=== PATIENT | female | born 1970 | race Caucasian/White ===

== ENCOUNTER 2017-09-02 17:08 | Inpatient (IN) ==
[2017-09-02] MEDS ORDERED: SODIUM CHLORIDE 0.9% 1,000 ML IV STA (17:52)
[2017-09-02] MEDS ORDERED: ALUM/MAG/SIMETH/LIDO VISC 1:1 30 ML BOTTLE PO STA (18:09)
[2017-09-02] MEDS ORDERED: PANTOPRAZOLE 40 MG VIAL IV STA (18:09)
[2017-09-02] MEDS ORDERED: ONDANSETRON 4 MG/2 ML VIAL IV STA (18:09)
[2017-09-02] MEDS ORDERED: KETOROLAC 30 MG/1 ML VIAL IV STA (18:09)
[2017-09-02 19:09] LABS: Basophils # 0.1 10*3/uL (0.0-0.2); Basophils % 0.7 % (0.0-0.8); Hematocrit 40.2 VOL% (35.7-47.0); Hemoglobin 14.3 GM/DL (12.0-16.0); Immature Granulocytes % 1.7 %; Immature Granulocytes Absolute 0.18 #; Lymphocytes # 0.5 10*3/uL (1.4-4.0); Lymphocytes % 4.8 % (21.3-54.2); Mean Corpuscular HGB Conc 35.6 GM/DL (32-36); Mean Corpuscular Hemoglobin 32 PG (27-34); Mean Corpuscular Volume 89.9 FL (87-102); Mean Platelet Volume 11.3 FL (9.6-12.0); Monocytes # 0.8 10*3/uL (0.11-0.8); Monocytes % 7.8 % (1.7-12.7); Neutrophils # 8.8 10*3/uL (1.4-7.4); Platelet Count 223 T/CUMM (130-400); Red Blood Count 4.47 MC/CUMM (3.8-5.5); Red Cell Distribution Width 13.7 % (9.3-17.3); White Blood Count 10.4 T/CUMM (4-12)
[2017-09-02] MEDS ORDERED: cefTRIAXone 1,000 MG in SODIUM CHLORIDE 0.9% 100 ML IV STA (19:18)
[2017-09-02] MEDS ORDERED: KETOROLAC 30 MG/1 ML VIAL ONE (19:25)
[2017-09-02] MEDS ORDERED: ALUM/MAG/SIMETH/LIDO VISC 1:1 30 ML BOTTLE PO ONE (19:25)
[2017-09-02] MEDS ORDERED: ONDANSETRON 4 MG/2 ML VIAL ONE (19:25)
[2017-09-02] MEDS ORDERED: PANTOPRAZOLE 40 MG VIAL IV ONE (19:25)
[2017-09-02] MEDS ORDERED: cefTRIAXone 1,000 MG VIAL ONE (19:25)
[2017-09-02 19:33] LABS: Albumin 2.7 G/DL (3.4-5.0); Bilirubin,Total 0.7 MG/DL (0.2-1.0); Calcium 8.3 MG/DL (8.5-10.1); Osmolality,Calculated 251.6 MOS/KG (273-304); Potassium 3.7 MMOL/L (3.5-5.1); Total Protein 6.2 G/DL (6.4-8.3)
[2017-09-02 19:35] LABS: Amylase 59 U/L (25-115); Magnesium 1.3 MG/DL (1.8-2.4); Troponin I Only < 0.015 NG/ML (0.00-0.045)
[2017-09-02 19:43] LABS: Band Neutrophils 55 % (0-10); Lymphocytes 4 % (20-55); Platelet Estimate Adequate; Segmented Neutrophils 32 % (50-85); Total Cells Counted 100
[2017-09-02] MEDS ORDERED: DEXTROSE 50% 25 GM/50 ML VIAL IV STA (19:51)
[2017-09-02] MEDS ORDERED: MAGNESIUM SULF RIDER 2 GM in PREMIX 1 EACH IV STA (19:51)
[2017-09-02] MEDS ORDERED: SODIUM CHLORIDE 0.9% 2,050 ML IV ONE (19:53)
[2017-09-02] MEDS ORDERED: PIPERACILLIN/TAZOBACTAM 3,375 MG in SODIUM CHLORIDE 0.9% 100 ML IV SCH (20:00)
[2017-09-02] MEDS ORDERED: ACETAMINOPHEN 325 MG TABLET PO PRN (20:26)
[2017-09-02] MEDS ORDERED: ALBUTEROL 2.5 MG/3 ML NEB RESP TX PRN (20:26)
[2017-09-02 20:37] LABS: INR 1.2; PT Patient Result 12.5 SECS; Partial Thromboplastin Time 33.4 SECS (0-40)
[2017-09-02 20:51] LABS: Lactic Acid 5.8 MMOL/L (0.4-2.0)
[2017-09-02 21:40] LABS: HIV Antigen/Antibody Result Nonreactive (Nonreactive)
[2017-09-02] MEDS: LACTATED RINGERS 1,000 ML IV SCH (22:30)
[2017-09-03] MEDS ORDERED: KETOROLAC 15 MG/1 ML VIAL IV PRN (00:13)
[2017-09-03] MEDS: LEVOFLOXACIN INJ 750 MG in PREMIX 1 EACH IV SCH (00:14)
[2017-09-03] MEDS: CLORAZEPATE 3.75 MG TABLET PO PRN (00:19)
[2017-09-03] MEDS: LEVALBUTEROL 1.25 MG/3 ML NEB RESP TX SCH ×2 (01:43→07:14)
[2017-09-03] MEDS: LORazepam 2 MG/1 ML VIAL IV PRN ×5 (02:20→21:10)
[2017-09-03 04:14] LABS: Basophils # 0.1 10*3/uL (0.0-0.2); Basophils % 1.1 % (0.0-0.8); Hematocrit 33.9 VOL% (35.7-47.0); Hemoglobin 11.8 GM/DL (12.0-16.0); Immature Granulocytes % 1.6 %; Immature Granulocytes Absolute 0.13 #; Lymphocytes # 0.2 10*3/uL (1.4-4.0); Lymphocytes % 2.4 % (21.3-54.2); Mean Corpuscular HGB Conc 34.8 GM/DL (32-36); Mean Corpuscular Hemoglobin 31 PG (27-34); Mean Corpuscular Volume 90.2 FL (87-102); Mean Platelet Volume 11.4 FL (9.6-12.0); Monocytes # 0.5 10*3/uL (0.11-0.8); Monocytes % 5.4 % (1.7-12.7); Neutrophils # 7.5 10*3/uL (1.4-7.4); Neutrophils % 89.5 % (38.7-73.9); Platelet Count 174 T/CUMM (130-400); Red Blood Count 3.76 MC/CUMM (3.8-5.5); White Blood Count 8.3 T/CUMM (4-12)
[2017-09-03 04:44] LABS: Albumin 2.1 G/DL (3.4-5.0); Bilirubin,Total 0.5 MG/DL (0.2-1.0); Calcium 7.1 MG/DL (8.5-10.1); Osmolality,Calculated 260.2 MOS/KG (273-304); Potassium 3.8 MMOL/L (3.5-5.1)
[2017-09-03] MEDS: PIPERACILLIN/TAZOBACTAM 3,375 MG in SODIUM CHLORIDE 0.9% 100 ML IV SCH ×3 (05:10→21:13)
[2017-09-03 05:58] LABS: Band Neutrophils 60 % (0-10); Hypochromasia 1+; Lymphocytes 3 % (20-55); Metamyelocytes 6 %; Myelocytes 4 %; Platelet Estimate Normal; Promyelocytes 1 %; Segmented Neutrophils 19 % (50-85); Total Cells Counted 100
[2017-09-03 07:43] LABS: ABG Base Excess -9.2 MMOL/L (-2.5-2.5); ABG Oxygen Saturation 89.1 % (95-100); ABG PCO2 25.5 MM HG (35-48); ABG PH 7.369 (7.35-7.45); ABG PO2 60.4 MM HG (80-95); ABG TCO2 13.1 MMOL/L (23-27)
[2017-09-03] MEDS ORDERED: DEXTROSE 50% 25 GM/50 ML VIAL IV ONE (08:06)
[2017-09-03] MEDS ORDERED: PHENYLEPHRINE DRIP 40 MG/250 ML PREMIX IV ONE (08:47)
[2017-09-03] MEDS: BUDESONIDE/FORMOTEROL 160-4.5 INHALER 6 GM INH SCH (08:53)
[2017-09-03] MEDS ORDERED: SODIUM BICARB INJ 100 MEQ in DEXTROSE 5% NACL 0.45% 900 ML IV SCH (09:00)
[2017-09-03] MEDS: LACTATED RINGERS 1,000 ML IV SCH ×3 (10:17→21:14)
[2017-09-03] MEDS: FOLIC ACID 1 MG TABLET PO SCH (10:18)
[2017-09-03] MEDS: POTASSIUM CHLORIDE 10 MEQ TABLET PO SCH (10:18)
[2017-09-03] MEDS: THIAMINE 100 MG TABLET PO SCH (10:18)
[2017-09-03] MEDS: MULTIVITAMIN (CENTRUM) TABLET PO SCH (10:18)
[2017-09-03] MEDS: LEVOTHYROXINE 50 MCG TABLET PO SCH (10:18)
[2017-09-03] MEDS: ENOXAPARIN 30 MG/0.3 ML SYRINGE SUBCUT SCH (10:34)
[2017-09-03] MEDS: methylPREDNISolone SOD SUC 40 MG/1 ML VIAL IV SCH ×2 (10:35→18:09)
[2017-09-03] MEDS: PANTOPRAZOLE 40 MG VIAL IV SCH (10:35)
[2017-09-03 10:58] LABS: Apearance,Urine CLOUDY (Clear); Bacteria,Urine Occasional /HPF (Few); Bilirubin,Urine Negative (Negative); Blood, Urine Small mg/dL (Negative); Glucose,Urine (UA) Negative (Negative); Ketones,Urine Negative (Negative); Mucus,Urine Few /LPF (Occasional); Nitrite,Urine Negative (Negative); Protein,Urine 30 MG/DL; Squamous Epithelial Cell,Urine Occasional /HPF (0-10); Urine Color Amber (Yellow); Urine Specific Gravity 1.016 (1.001-1.035); Urine Urobilinogen < 2.0 EU/DL (0.2-1.0); WBC,Urine 5 /HPF (0-6)
[2017-09-03] MEDS: ALBUTEROL/IPRATROPIUM 3 ML NEB RESP TX SCH ×2 (12:44→19:23)
[2017-09-03] MEDS ORDERED: PHENOL 1.4% THROAT SPRAY 177 ML BOTTLE PO PRN (13:56)
[2017-09-03] MEDS ORDERED: DEXTROSE 50% 25 GM/50 ML VIAL IV PRN (18:32)
[2017-09-03] MEDS ORDERED: SODIUM CHLORIDE 0.9% 1,000 ML IV STA (20:00)
[2017-09-04] MEDS ORDERED: ALBUTEROL/IPRATROPIUM 3 ML NEB RESP TX ONE (00:01)
[2017-09-04] MEDS: ALBUTEROL/IPRATROPIUM 3 ML NEB RESP TX SCH ×4 (01:08→19:27)
[2017-09-04 04:28] LABS: Hematocrit 33.7 VOL% (35.7-47.0); Hemoglobin 12.2 GM/DL (12.0-16.0); Immature Granulocytes % 2.9 %; Immature Granulocytes Absolute 0.67 #; Lymphocytes # 0.2 10*3/uL (1.4-4.0); Lymphocytes % 0.7 % (21.3-54.2); Mean Corpuscular HGB Conc 36.2 GM/DL (32-36); Mean Corpuscular Hemoglobin 32 PG (27-34); Mean Corpuscular Volume 87.1 FL (87-102); Mean Platelet Volume 12.3 FL (9.6-12.0); Monocytes # 0.6 10*3/uL (0.11-0.8); Monocytes % 2.6 % (1.7-12.7); Neutrophils # 21.6 10*3/uL (1.4-7.4); Neutrophils % 93.8 % (38.7-73.9); Platelet Count 154 T/CUMM (130-400); Red Blood Count 3.87 MC/CUMM (3.8-5.5); Red Cell Distribution Width 13.9 % (9.3-17.3)
[2017-09-04] MEDS: methylPREDNISolone SOD SUC 40 MG/1 ML VIAL IV SCH ×3 (04:39→16:52)
[2017-09-04] MEDS: LACTATED RINGERS 1,000 ML IV SCH ×2 (04:57→12:28)
[2017-09-04] MEDS: LORazepam 2 MG/1 ML VIAL IV PRN ×3 (04:58→16:52)
[2017-09-04] MEDS: HYDROmorphone 2 MG/1 ML VIAL IV PRN (05:02)
[2017-09-04] MEDS: PIPERACILLIN/TAZOBACTAM 3,375 MG in SODIUM CHLORIDE 0.9% 100 ML IV SCH ×3 (05:05→20:55)
[2017-09-04 05:57] LABS: Band Neutrophils 37 % (0-10); Lymphocytes 2 % (20-55); Myelocytes 1 %; Segmented Neutrophils 59 % (50-85)
[2017-09-04 05:59] LABS: Giant Platelets Few; Platelet Estimate Normal; Total Cells Counted 100
[2017-09-04] MEDS: LEVOTHYROXINE 50 MCG TABLET PO SCH (07:03)
[2017-09-04 08:29] LABS: Hemoglobin 12.3 GM/DL (12.0-16.0); Immature Granulocytes % 4.1 %; Immature Granulocytes Absolute 1.06 #; Lymphocytes # 0.3 10*3/uL (1.4-4.0); Lymphocytes % 1.2 % (21.3-54.2); Mean Corpuscular HGB Conc 36.2 GM/DL (32-36); Mean Corpuscular Hemoglobin 31 PG (27-34); Mean Corpuscular Volume 86.7 FL (87-102); Mean Platelet Volume 12.1 FL (9.6-12.0); Monocytes # 0.7 10*3/uL (0.11-0.8); Monocytes % 2.7 % (1.7-12.7); Neutrophils # 23.7 10*3/uL (1.4-7.4); Platelet Count 154 T/CUMM (130-400); Red Blood Count 3.92 MC/CUMM (3.8-5.5); Red Cell Distribution Width 13.9 % (9.3-17.3); White Blood Count 25.8 T/CUMM (4-12)
[2017-09-04 08:52] LABS: Band Neutrophils 7 % (0-10); Burr Cells Slight; Giant Platelets Few; Hypochromasia Slight; Lymphocytes 1 % (20-55); Platelet Estimate Normal; Segmented Neutrophils 89 % (50-85); Total Cells Counted 100
[2017-09-04 09:01] LABS: Albumin 2.1 G/DL (3.4-5.0); Bilirubin,Total 0.5 MG/DL (0.2-1.0); Calcium 7.7 MG/DL (8.5-10.1); Osmolality,Calculated 273.5 MOS/KG (273-304); Potassium 4.5 MMOL/L (3.5-5.1); Total Protein 5.5 G/DL (6.4-8.3)
[2017-09-04] MEDS: POTASSIUM CHLORIDE 10 MEQ TABLET PO SCH (09:17)
[2017-09-04] MEDS: THIAMINE 100 MG TABLET PO SCH (09:17)
[2017-09-04] MEDS: FOLIC ACID 1 MG TABLET PO SCH (09:17)
[2017-09-04] MEDS: MULTIVITAMIN (CENTRUM) TABLET PO SCH (09:17)
[2017-09-04] MEDS: PANTOPRAZOLE 40 MG VIAL IV SCH (09:28)
[2017-09-04] MEDS: ENOXAPARIN 30 MG/0.3 ML SYRINGE SUBCUT SCH (09:28)
[2017-09-04] MEDS ORDERED: LOPERAMIDE 2 MG CAPSULE PO PRN (09:48)
[2017-09-05] MEDS: methylPREDNISolone SOD SUC 40 MG/1 ML VIAL IV SCH ×3 (00:32→16:35)
[2017-09-05] MEDS: HYDROmorphone 2 MG/1 ML VIAL IV PRN ×3 (00:34→21:53)
[2017-09-05] MEDS: LORazepam 2 MG/1 ML VIAL IV PRN (00:35)
[2017-09-05] MEDS: LEVOFLOXACIN INJ 750 MG in PREMIX 1 EACH IV SCH (00:38)
[2017-09-05] MEDS: ALBUTEROL/IPRATROPIUM 3 ML NEB RESP TX SCH ×4 (01:01→19:28)
[2017-09-05] MEDS: PIPERACILLIN/TAZOBACTAM 3,375 MG in SODIUM CHLORIDE 0.9% 100 ML IV SCH ×3 (04:46→21:00)
[2017-09-05] MEDS: LACTATED RINGERS 1,000 ML IV SCH ×4 (04:46→21:52)
[2017-09-05 06:16] LABS: Albumin 1.6 G/DL (3.4-5.0); Bilirubin,Total 0.5 MG/DL (0.2-1.0); Calcium 8.1 MG/DL (8.5-10.1)
[2017-09-05] MEDS: LEVOTHYROXINE 50 MCG TABLET PO SCH (06:16)
[2017-09-05 07:18] LABS: Hematocrit 33.1 VOL% (35.7-47.0); Hemoglobin 11.8 GM/DL (12.0-16.0); Lymphocytes % 1.4 % (21.3-54.2); Mean Corpuscular HGB Conc 35.6 GM/DL (32-36); Mean Corpuscular Hemoglobin 32 PG (27-34); Mean Corpuscular Volume 88.5 FL (87-102); Mean Platelet Volume 12.6 FL (9.6-12.0); Neutrophils % 87.1 % (38.7-73.9); Platelet Count 149 T/CUMM (130-400); Red Blood Count 3.74 MC/CUMM (3.8-5.5); Red Cell Distribution Width 14.3 % (9.3-17.3)
[2017-09-05 07:19] LABS: Basophils % 0.1 % (0.0-0.8); Immature Granulocytes % 8.7 %; Immature Granulocytes Absolute 2.45 #; Lymphocytes # 0.4 10*3/uL (1.4-4.0); Monocytes # 0.8 10*3/uL (0.11-0.8); Monocytes % 2.7 % (1.7-12.7); Neutrophils # 24.4 10*3/uL (1.4-7.4)
[2017-09-05 07:38] LABS: Band Neutrophils 2 % (0-10); Giant Platelets Few; Hypochromasia Slight; Lymphocytes 2 % (20-55); Platelet Estimate Normal; Segmented Neutrophils 93 % (50-85); Total Cells Counted 100
[2017-09-05] MEDS: MULTIVITAMIN (CENTRUM) TABLET PO SCH (08:35)
[2017-09-05] MEDS: THIAMINE 100 MG TABLET PO SCH (08:35)
[2017-09-05] MEDS: POTASSIUM CHLORIDE 10 MEQ TABLET PO SCH (08:36)
[2017-09-05] MEDS: PANTOPRAZOLE 40 MG VIAL IV SCH (08:36)
[2017-09-05] MEDS: ENOXAPARIN 30 MG/0.3 ML SYRINGE SUBCUT SCH (08:36)
[2017-09-05] MEDS: FOLIC ACID 1 MG TABLET PO SCH (08:36)
[2017-09-05] MEDS: CLORAZEPATE 3.75 MG TABLET PO PRN ×2 (14:14→21:53)
[2017-09-05] MEDS: CHOLESTYRAMINE 4 GM PACK PO SCH (21:53)
[2017-09-06] MEDS: methylPREDNISolone SOD SUC 40 MG/1 ML VIAL IV SCH ×3 (00:15→15:40)
[2017-09-06] MEDS: LEVOFLOXACIN INJ 750 MG in PREMIX 1 EACH IV SCH (00:16)
[2017-09-06] MEDS: ALBUTEROL/IPRATROPIUM 3 ML NEB RESP TX SCH ×4 (00:40→19:10)
[2017-09-06] MEDS: PIPERACILLIN/TAZOBACTAM 3,375 MG in SODIUM CHLORIDE 0.9% 100 ML IV SCH ×3 (04:49→20:05)
[2017-09-06] MEDS: LACTATED RINGERS 1,000 ML IV SCH (04:50)
[2017-09-06] MEDS: HYDROmorphone 2 MG/1 ML VIAL IV PRN ×3 (04:51→17:13)
[2017-09-06] MEDS: CLORAZEPATE 3.75 MG TABLET PO PRN (04:55)
[2017-09-06] MEDS: LEVOTHYROXINE 50 MCG TABLET PO SCH (08:00)
[2017-09-06] MEDS: PANTOPRAZOLE 40 MG VIAL IV SCH (09:27)
[2017-09-06] MEDS: FOLIC ACID 1 MG TABLET PO SCH (09:28)
[2017-09-06] MEDS: ENOXAPARIN 40 MG/0.4 ML SYRINGE SUBCUT SCH (09:28)
[2017-09-06] MEDS: THIAMINE 100 MG TABLET PO SCH (09:28)
[2017-09-06] MEDS: CHOLESTYRAMINE 4 GM PACK PO SCH ×2 (09:28→21:36)
[2017-09-06] MEDS: MULTIVITAMIN (CENTRUM) TABLET PO SCH (09:28)
[2017-09-06] MEDS: POTASSIUM CHLORIDE 10 MEQ TABLET PO SCH (09:28)
[2017-09-06] MEDS ORDERED: FUROSEMIDE 40 MG/4 ML VIAL IV ONE (13:54)
[2017-09-07] MEDS: ALBUTEROL/IPRATROPIUM 3 ML NEB RESP TX SCH ×4 (00:03→19:24)
[2017-09-07] MEDS: methylPREDNISolone SOD SUC 40 MG/1 ML VIAL IV SCH ×4 (00:17→23:37)
[2017-09-07] MEDS: LEVOFLOXACIN INJ 750 MG in PREMIX 1 EACH IV SCH ×2 (00:17→23:38)
[2017-09-07] MEDS: LACTATED RINGERS 1,000 ML IV SCH (02:56)
[2017-09-07 03:21] LABS: Basophils # 0.2 10*3/uL (0.0-0.2); Basophils % 0.6 % (0.0-0.8); Hematocrit 32.4 VOL% (35.7-47.0); Hemoglobin 11.2 GM/DL (12.0-16.0); Immature Granulocytes % 7.3 %; Immature Granulocytes Absolute 1.87 #; Lymphocytes # 0.5 10*3/uL (1.4-4.0); Lymphocytes % 1.8 % (21.3-54.2); Mean Corpuscular HGB Conc 34.6 GM/DL (32-36); Mean Corpuscular Hemoglobin 32 PG (27-34); Mean Platelet Volume 12.9 FL (9.6-12.0); Neutrophils # 22.2 10*3/uL (1.4-7.4); Neutrophils % 86.3 % (38.7-73.9); Platelet Count 154 T/CUMM (130-400); Red Blood Count 3.56 MC/CUMM (3.8-5.5); Red Cell Distribution Width 14.9 % (9.3-17.3); White Blood Count 25.7 T/CUMM (4-12)
[2017-09-07 03:59] LABS: Calcium 8.8 MG/DL (8.5-10.1); Magnesium 2.2 MG/DL (1.8-2.4); Osmolality,Calculated 278.1 MOS/KG (273-304); Potassium 4.2 MMOL/L (3.5-5.1)
[2017-09-07] MEDS: PIPERACILLIN/TAZOBACTAM 3,375 MG in SODIUM CHLORIDE 0.9% 100 ML IV SCH ×3 (04:03→19:53)
[2017-09-07] MEDS: HYDROmorphone 2 MG/1 ML VIAL IV PRN ×3 (04:18→21:27)
[2017-09-07 05:52] LABS: Band Neutrophils 1 % (0-10); Lymphocytes 8 % (20-55); Platelet Estimate Adequate; Promyelocytes 1 %; Segmented Neutrophils 87 % (50-85); Total Cells Counted 100
[2017-09-07] MEDS: MULTIVITAMIN (CENTRUM) TABLET PO SCH (08:59)
[2017-09-07] MEDS: LEVOTHYROXINE 50 MCG TABLET PO SCH (08:59)
[2017-09-07] MEDS: POTASSIUM CHLORIDE 10 MEQ TABLET PO SCH (08:59)
[2017-09-07] MEDS: THIAMINE 100 MG TABLET PO SCH (08:59)
[2017-09-07] MEDS: FOLIC ACID 1 MG TABLET PO SCH (08:59)
[2017-09-07] MEDS: CHOLESTYRAMINE 4 GM PACK PO SCH ×2 (08:59→20:02)
[2017-09-07] MEDS: ENOXAPARIN 40 MG/0.4 ML SYRINGE SUBCUT SCH (09:00)
[2017-09-07] MEDS: CLORAZEPATE 3.75 MG TABLET PO PRN (10:42)
[2017-09-07] MEDS: BUDESONIDE/FORMOTEROL 160-4.5 INHALER 6 GM INH SCH ×2 (11:21→20:02)
[2017-09-07 11:56] LABS: ABG HCO3 25.3 MMOL/L (20-26); ABG Oxygen Saturation 96.9 % (95-100); ABG PCO2 44.9 MM HG (35-48); ABG PH 7.379 (7.35-7.45); ABG TCO2 23.6 MMOL/L (23-27)
[2017-09-07 12:57] LABS: Apearance,Urine CLEAR (Clear); Bilirubin,Urine Negative (Negative); Blood, Urine Moderate mg/dL (Negative); Glucose,Urine (UA) 50 mg/dL (Negative); Ketones,Urine Negative (Negative); Nitrite,Urine Negative (Negative); Protein,Urine Negative; RBC,Urine 1 /HPF (0-4); Urine Color Yellow (Yellow); Urine Specific Gravity 1.017 (1.001-1.035); Urine Urobilinogen < 2.0 EU/DL (0.2-1.0); WBC,Urine 1 /HPF (0-6)
[2017-09-08] MEDS: ALBUTEROL/IPRATROPIUM 3 ML NEB RESP TX SCH ×5 (01:33→23:10)
[2017-09-08] MEDS: PIPERACILLIN/TAZOBACTAM 3,375 MG in SODIUM CHLORIDE 0.9% 100 ML IV SCH ×3 (05:39→20:09)
[2017-09-08] MEDS: HYDROmorphone 2 MG/1 ML VIAL IV PRN ×4 (06:01→20:00)
[2017-09-08] MEDS: LEVOTHYROXINE 50 MCG TABLET PO SCH (06:05)
[2017-09-08] MEDS: methylPREDNISolone SOD SUC 40 MG/1 ML VIAL IV SCH ×2 (08:21→16:13)
[2017-09-08] MEDS: POTASSIUM CHLORIDE 10 MEQ TABLET PO SCH (09:23)
[2017-09-08] MEDS: CHOLESTYRAMINE 4 GM PACK PO SCH ×2 (09:23→21:00)
[2017-09-08] MEDS: THIAMINE 100 MG TABLET PO SCH (09:23)
[2017-09-08] MEDS: BUDESONIDE/FORMOTEROL 160-4.5 INHALER 6 GM INH SCH ×2 (09:23→20:09)
[2017-09-08] MEDS: MULTIVITAMIN (CENTRUM) TABLET PO SCH (09:23)
[2017-09-08] MEDS: ENOXAPARIN 40 MG/0.4 ML SYRINGE SUBCUT SCH (09:23)
[2017-09-08] MEDS: FOLIC ACID 1 MG TABLET PO SCH (09:24)
[2017-09-08] MEDS: TRIAMCINOLONE 0.025% CREAM 15 GM TUBE TOP SCH ×2 (16:13→20:11)
[2017-09-08] MEDS ORDERED: CALCIUM CARBONATE CHEW 500 MG TABLET PO PRN (16:25)
[2017-09-08] MEDS ORDERED: ALBUTEROL/IPRATROPIUM 3 ML NEB RESP TX PRN (20:00)
[2017-09-09] MEDS: methylPREDNISolone SOD SUC 40 MG/1 ML VIAL IV SCH ×3 (02:10→18:38)
[2017-09-09] MEDS: LEVOFLOXACIN INJ 750 MG in PREMIX 1 EACH IV SCH (02:12)
[2017-09-09] MEDS: HYDROmorphone 2 MG/1 ML VIAL IV PRN ×4 (03:04→20:13)
[2017-09-09 04:53] LABS: Basophils # 0.2 10*3/uL (0.0-0.2); Basophils % 0.8 % (0.0-0.8); Eosinophils % 0.1 % (0.00-10.9); Hematocrit 35.9 VOL% (35.7-47.0); Hemoglobin 11.8 GM/DL (12.0-16.0); Immature Granulocytes % 11.9 %; Immature Granulocytes Absolute 2.89 #; Lymphocytes # 0.9 10*3/uL (1.4-4.0); Lymphocytes % 3.5 % (21.3-54.2); Mean Corpuscular HGB Conc 32.9 GM/DL (32-36); Mean Corpuscular Hemoglobin 31 PG (27-34); Mean Platelet Volume 11.4 FL (9.6-12.0); Monocytes # 0.8 10*3/uL (0.11-0.8); Monocytes % 3.2 % (1.7-12.7); Neutrophils # 19.6 10*3/uL (1.4-7.4); Neutrophils % 80.5 % (38.7-73.9); Platelet Count 201 T/CUMM (130-400); Red Blood Count 3.78 MC/CUMM (3.8-5.5); Red Cell Distribution Width 15.5 % (9.3-17.3); White Blood Count 24.4 T/CUMM (4-12)
[2017-09-09 05:15] LABS: Calcium 8.6 MG/DL (8.5-10.1); Osmolality,Calculated 276.7 MOS/KG (273-304); Potassium 5.4 MMOL/L (3.5-5.1)
[2017-09-09 05:23] LABS: Band Neutrophils 5 % (0-10); Giant Platelets Few; Hypochromasia 1+; Lymphocytes 2 % (20-55); Platelet Estimate Adequate; Segmented Neutrophils 89 % (50-85); Total Cells Counted 100
[2017-09-09] MEDS: PIPERACILLIN/TAZOBACTAM 3,375 MG in SODIUM CHLORIDE 0.9% 100 ML IV SCH ×2 (06:07→16:07)
[2017-09-09] MEDS: LEVOTHYROXINE 50 MCG TABLET PO SCH (06:24)
[2017-09-09] MEDS ORDERED: PROMETHAZINE 25 MG/1 ML VIAL IM ONE (07:30)
[2017-09-09] MEDS ORDERED: MEPERIDINE 50 MG/1 ML VIAL IM ONE (07:30)
[2017-09-09] MEDS ORDERED: LIDOCAINE 1% 20 ML VIAL MISC INJ ONE (08:00)
[2017-09-09] MEDS ORDERED: LIDOCAINE 2% VISCOUS 100 ML BOTTLE SWISH/SPIT ONE (08:00)
[2017-09-09] MEDS ORDERED: LIDOCAINE 2% 20 ML VIAL RESP TX ONE (08:00)
[2017-09-09] MEDS ORDERED: MIDAZOLAM 2 MG/2 ML VIAL IV ONE (08:00)
[2017-09-09] MEDS ORDERED: SODIUM POLYSTYRENE SULFATE 15 GM/60 ML BOTTLE PO STA (08:36)
[2017-09-09] MEDS: ALBUTEROL/IPRATROPIUM 3 ML NEB RESP TX SCH ×3 (08:45→19:35)
[2017-09-09] MEDS: POTASSIUM CHLORIDE 10 MEQ TABLET PO SCH (08:48)
[2017-09-09] MEDS: FOLIC ACID 1 MG TABLET PO SCH (10:43)
[2017-09-09] MEDS: MULTIVITAMIN (CENTRUM) TABLET PO SCH (10:44)
[2017-09-09] MEDS: THIAMINE 100 MG TABLET PO SCH (10:45)
[2017-09-09] MEDS: BUDESONIDE/FORMOTEROL 160-4.5 INHALER 6 GM INH SCH ×2 (10:46→20:08)
[2017-09-09] MEDS: CHOLESTYRAMINE 4 GM PACK PO SCH ×2 (10:47→20:06)
[2017-09-09] MEDS: TRIAMCINOLONE 0.025% CREAM 15 GM TUBE TOP SCH ×3 (10:48→20:06)
[2017-09-09] MEDS: ENOXAPARIN 40 MG/0.4 ML SYRINGE SUBCUT SCH (10:50)
[2017-09-10] MEDS: LEVOFLOXACIN INJ 750 MG in PREMIX 1 EACH IV SCH (00:16)
[2017-09-10] MEDS: methylPREDNISolone SOD SUC 40 MG/1 ML VIAL IV SCH ×3 (00:17→16:27)
[2017-09-10] MEDS: ALBUTEROL/IPRATROPIUM 3 ML NEB RESP TX SCH ×4 (00:31→19:46)
[2017-09-10] MEDS: HYDROmorphone 2 MG/1 ML VIAL IV PRN ×2 (01:55→16:54)
[2017-09-10] MEDS: PIPERACILLIN/TAZOBACTAM 3,375 MG in SODIUM CHLORIDE 0.9% 100 ML IV SCH ×3 (01:56→16:21)
[2017-09-10 06:19] LABS: Albumin 1.8 G/DL (3.4-5.0); Bilirubin,Total 0.5 MG/DL (0.2-1.0); Calcium 8.5 MG/DL (8.5-10.1); Osmolality,Calculated 270.2 MOS/KG (273-304); Potassium 5.4 MMOL/L (3.5-5.1); Total Protein 4.9 G/DL (6.4-8.3)
[2017-09-10] MEDS: LEVOTHYROXINE 50 MCG TABLET PO SCH (06:19)
[2017-09-10 06:25] LABS: Hematocrit 38.6 VOL% (35.7-47.0); Hemoglobin 12.9 GM/DL (12.0-16.0); Immature Granulocytes % 11.7 %; Immature Granulocytes Absolute 2.88 #; Lymphocytes # 0.7 10*3/uL (1.4-4.0); Mean Corpuscular HGB Conc 33.4 GM/DL (32-36); Mean Corpuscular Hemoglobin 32 PG (27-34); Mean Corpuscular Volume 94.1 FL (87-102); Monocytes # 0.5 10*3/uL (0.11-0.8); Neutrophils # 20.5 10*3/uL (1.4-7.4); Neutrophils % 83.3 % (38.7-73.9); Platelet Count 191 T/CUMM (130-400); Red Cell Distribution Width 15.9 % (9.3-17.3); White Blood Count 24.7 T/CUMM (4-12)
[2017-09-10 06:46] LABS: Band Neutrophils 3 % (0-10); Hypochromasia 1+; Lymphocytes 3 % (20-55); Metamyelocytes 2 %; Microcytosis Slight; Platelet Estimate Adequate; Promyelocytes 1 %; Segmented Neutrophils 88 % (50-85); Total Cells Counted 100
[2017-09-10] MEDS: TRIAMCINOLONE 0.025% CREAM 15 GM TUBE TOP SCH ×3 (09:15→20:57)
[2017-09-10] MEDS: BUDESONIDE/FORMOTEROL 160-4.5 INHALER 6 GM INH SCH ×2 (09:15→20:56)
[2017-09-10] MEDS: MULTIVITAMIN (CENTRUM) TABLET PO SCH (09:16)
[2017-09-10] MEDS: FOLIC ACID 1 MG TABLET PO SCH (09:16)
[2017-09-10] MEDS: CHOLESTYRAMINE 4 GM PACK PO SCH ×2 (09:16→20:57)
[2017-09-10] MEDS: ENOXAPARIN 40 MG/0.4 ML SYRINGE SUBCUT SCH (09:16)
[2017-09-10] MEDS: THIAMINE 100 MG TABLET PO SCH (09:16)
[2017-09-10] MEDS: POTASSIUM CHLORIDE 10 MEQ TABLET PO SCH (09:17)
[2017-09-11] MEDS: LEVOFLOXACIN INJ 750 MG in PREMIX 1 EACH IV SCH (00:01)
[2017-09-11] MEDS: methylPREDNISolone SOD SUC 40 MG/1 ML VIAL IV SCH ×3 (00:01→15:10)
[2017-09-11] MEDS: HYDROmorphone 2 MG/1 ML VIAL IV PRN (00:02)
[2017-09-11] MEDS: ALBUTEROL/IPRATROPIUM 3 ML NEB RESP TX SCH ×4 (00:37→19:31)
[2017-09-11] MEDS: PIPERACILLIN/TAZOBACTAM 3,375 MG in SODIUM CHLORIDE 0.9% 100 ML IV SCH ×3 (01:46→15:11)
[2017-09-11 05:15] LABS: Basophils # 0.2 10*3/uL (0.0-0.2); Basophils % 0.6 % (0.0-0.8); Hemoglobin 11.8 GM/DL (12.0-16.0); Lymphocytes # 0.9 10*3/uL (1.4-4.0); Lymphocytes % 3.3 % (21.3-54.2); Mean Corpuscular HGB Conc 33.7 GM/DL (32-36); Mean Corpuscular Hemoglobin 31 PG (27-34); Mean Corpuscular Volume 91.9 FL (87-102); Monocytes # 0.5 10*3/uL (0.11-0.8); Monocytes % 1.8 % (1.7-12.7); Neutrophils # 23.6 10*3/uL (1.4-7.4); Neutrophils % 85.3 % (38.7-73.9); Platelet Count 259 T/CUMM (130-400); Red Blood Count 3.81 MC/CUMM (3.8-5.5); Red Cell Distribution Width 15.2 % (9.3-17.3); White Blood Count 27.7 T/CUMM (4-12)
[2017-09-11 05:46] LABS: Giant Platelets Few; Hypochromasia 1+; Lymphocytes 4 % (20-55); Platelet Estimate Adequate; Segmented Neutrophils 93 % (50-85); Total Cells Counted 100
[2017-09-11 05:47] LABS: Microcytosis Slight
[2017-09-11 05:49] LABS: Calcium 8.2 MG/DL (8.5-10.1); Magnesium 2.1 MG/DL (1.8-2.4); Osmolality,Calculated 272.1 MOS/KG (273-304); Potassium 5.5 MMOL/L (3.5-5.1)
[2017-09-11] MEDS: LEVOTHYROXINE 50 MCG TABLET PO SCH (06:27)
[2017-09-11] MEDS: TRIAMCINOLONE 0.025% CREAM 15 GM TUBE TOP SCH ×3 (08:32→20:15)
[2017-09-11] MEDS: BUDESONIDE/FORMOTEROL 160-4.5 INHALER 6 GM INH SCH ×2 (08:33→20:15)
[2017-09-11] MEDS: FOLIC ACID 1 MG TABLET PO SCH (08:33)
[2017-09-11] MEDS: THIAMINE 100 MG TABLET PO SCH (08:33)
[2017-09-11] MEDS: MULTIVITAMIN (CENTRUM) TABLET PO SCH (08:33)
[2017-09-11] MEDS: POTASSIUM CHLORIDE 10 MEQ TABLET PO SCH (08:33)
[2017-09-11] MEDS: ENOXAPARIN 40 MG/0.4 ML SYRINGE SUBCUT SCH (08:33)
[2017-09-12] MEDS: ALBUTEROL/IPRATROPIUM 3 ML NEB RESP TX SCH ×4 (00:39→20:39)
[2017-09-12] MEDS: LEVOFLOXACIN INJ 750 MG in PREMIX 1 EACH IV SCH ×2 (00:51→23:36)
[2017-09-12] MEDS: methylPREDNISolone SOD SUC 40 MG/1 ML VIAL IV SCH ×4 (00:51→23:37)
[2017-09-12] MEDS: PIPERACILLIN/TAZOBACTAM 3,375 MG in SODIUM CHLORIDE 0.9% 100 ML IV SCH ×3 (02:52→16:35)
[2017-09-12] MEDS: LEVOTHYROXINE 50 MCG TABLET PO SCH (06:25)
[2017-09-12] MEDS: THIAMINE 100 MG TABLET PO SCH (08:51)
[2017-09-12] MEDS: FOLIC ACID 1 MG TABLET PO SCH (08:51)
[2017-09-12] MEDS: MULTIVITAMIN (CENTRUM) TABLET PO SCH (08:51)
[2017-09-12] MEDS: ENOXAPARIN 40 MG/0.4 ML SYRINGE SUBCUT SCH (08:54)
[2017-09-12] MEDS: BUDESONIDE/FORMOTEROL 160-4.5 INHALER 6 GM INH SCH ×2 (09:09→20:35)
[2017-09-12] MEDS: TRIAMCINOLONE 0.025% CREAM 15 GM TUBE TOP SCH ×3 (09:09→20:34)
[2017-09-12] MEDS: POTASSIUM CHLORIDE 10 MEQ TABLET PO SCH (09:12)
[2017-09-12] MEDS: NYSTATIN 500,000 UNIT/5 ML UDCUP SWISH/SWAL SCH (20:33)
[2017-09-13] MEDS: PIPERACILLIN/TAZOBACTAM 3,375 MG in SODIUM CHLORIDE 0.9% 100 ML IV SCH ×2 (01:25→09:30)
[2017-09-13] MEDS: ALBUTEROL/IPRATROPIUM 3 ML NEB RESP TX SCH ×2 (01:58→07:10)
[2017-09-13] MEDS: LEVOTHYROXINE 50 MCG TABLET PO SCH (06:03)
[2017-09-13] MEDS: NYSTATIN 500,000 UNIT/5 ML UDCUP SWISH/SWAL SCH (09:29)
[2017-09-13] MEDS: ENOXAPARIN 40 MG/0.4 ML SYRINGE SUBCUT SCH (09:29)
[2017-09-13] MEDS: MULTIVITAMIN (CENTRUM) TABLET PO SCH (09:30)
[2017-09-13] MEDS: methylPREDNISolone SOD SUC 40 MG/1 ML VIAL IV SCH (09:30)
[2017-09-13] MEDS: FOLIC ACID 1 MG TABLET PO SCH (09:30)
[2017-09-13] MEDS: THIAMINE 100 MG TABLET PO SCH (09:30)
[2017-09-13] MEDS: TRIAMCINOLONE 0.025% CREAM 15 GM TUBE TOP SCH (09:31)
[2017-09-13] MEDS: BUDESONIDE/FORMOTEROL 160-4.5 INHALER 6 GM INH SCH (09:31)
[2017-09-13] MEDS: POTASSIUM CHLORIDE 10 MEQ TABLET PO SCH (09:31)
[2017-09-13 11:21] VITALS: BP 137/88
== END 2017-09-13 11:40 | disposition home or self-care (01) | DRG 871 ==
LOC: N.ED 17:08 → N.EDINP 20:26 → SUATTDRO 20:27 → N.CC 21:51 → N.2E 09-06 21:18 → N.CC 09-07 12:03 → N.5E 09-11 16:09
PROVIDERS: ADMIT Internal Medicine; ATTEND Internal Medicine Geriatric Medicine